=== PATIENT | male | born 1990 | race Hispanic/Latino ===

== ENCOUNTER → 2020-05-06 | Outpatient (CLI) | payer MEDICAID | END | disposition home or self-care (01) | LOC: OIH 10:53 | PROVIDERS: ATTEND Family Medicine | DX: M25.561 Pain in right knee (principal); R06.02 Shortness of breath | CPT/HCPCS: 71046; 73562 ==

== ENCOUNTER → 2020-05-11 | Outpatient (CLI) | payer MEDICAID | END | disposition home or self-care (01) | LOC: RAH 13:00 → EDUNIT# 13:00 | PROVIDERS: ATTEND Family Medicine | DX: N18.1 Chronic kidney disease, stage 1 (principal) | CPT/HCPCS: 76770 ==